=== PATIENT | female | born 1970 | race Caucasian/White ===

== ENCOUNTER → 2016-08-18 | Outpatient (REF) | payer OTHER ==
[2016-08-18 14:04] LABS: VITAMIN B12 LEVEL 993 PG/ML
[2016-08-18 14:05] LABS: FOLATE > 24.0 NG/ML
[2016-08-18 14:40] LABS: FREE T4 0.78 NG/DL (0.76-1.46); TOTAL PROTEIN 7.4 GM/DL (6.4-8.2)
[2016-08-21 00:07] LABS: VITAMIN E LEVEL 14.2 mg/L (5.3-16.8)
[2016-08-21 11:12] LABS: ALBUMIN % 58.5 % (55.8-66.1)
[2016-08-21 11:20] LABS: ALBUMIN 4.33 GM/DL (3.29-5.55); GAMMA GLOBULIN % 13.6 % (11.1-18.8)
== END ==
LOC: M LABNEURO 13:23
PROVIDERS: ATTEND Psychiatry & Neurology Neurology
DX: M54.2 Cervicalgia (principal); M47.892 Other spondylosis, cervical region